=== PATIENT | male | born 2000 | race Caucasian/White ===

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

== ENCOUNTER 2022-11-05 21:23 | Emergency (ER) | payer OTHER ==
[2022-11-05 21:31] VITALS: BP 116/69; PULSE 85; RESP 18; TEMP 98.6; BMI 28.3
[2022-11-05] MEDS ORDERED: AMOX TR/POT CLAV 875MG/125MG TABLETS (FP) PO ONE (22:19)
[2022-11-05] MEDS ORDERED: AMOX TR/POT CLAV 875MG/125MG TABLETS (FP) ONE (22:20)
== END 2022-11-05 22:52 | disposition home or self-care (01) ==
LOC: JERFT 21:23
DX: L03.011 Cellulitis of right finger (principal); M79.644 Pain in right finger(s); M79.641 Pain in right hand
CPT/HCPCS: 99283-25

== ENCOUNTER 2022-11-14 20:04 | Emergency (ER) | payer OTHER ==
[2022-11-14 20:19] VITALS: BP 114/67; PULSE 85; RESP 20; TEMP 98.9; BMI 28.3
[2022-11-14] MEDS ORDERED: IBUPROFEN 400 MG TABLET (FP) PO ONE ×2 (21:31→21:34)
[2022-11-14] MEDS ORDERED: BACITRACIN ZINC 15 GM TUBE TOPICAL OINTMENT ONE (21:33)
[2022-11-14] MEDS ORDERED: BACITRACIN ZINC 15 GM TUBE TOPICAL OINTMENT TP ONE (21:33)
== END 2022-11-14 21:42 | disposition home or self-care (01) ==
LOC: JERFT 20:04 → JER 20:04 → JERFT 21:42
DX: L03.011 Cellulitis of right finger (principal); R22.31 Localized swelling, mass and lump, right upper limb
CPT/HCPCS: 99283-25

== ENCOUNTER 2023-10-08 12:05 | Emergency (ER) | payer OTHER ==
[2023-10-08 12:29] VITALS: BP 126/79; PULSE 89; RESP 20; TEMP 99; BMI 24.7
== END 2023-10-08 14:19 | disposition home or self-care (01) ==
LOC: JER 12:05
DX: F80.81 Childhood onset fluency disorder (principal); R25.9 Unspecified abnormal involuntary movements
CPT/HCPCS: 99282-25

== ENCOUNTER 2024-05-19 12:28 | Emergency (ER) | payer OTHER ==
[2024-05-19 12:38] VITALS: BMI 26.5
[2024-05-19] MEDS ORDERED: ACETAMINOPHEN 325 MG TABLET (FP) ONE (13:15)
[2024-05-19] MEDS ORDERED: MAG HYDROX/AL HYDROX/SIMETH 30 ML UNIT-DOSE CUP ONE (13:15)
[2024-05-19] MEDS: ACETAMINOPHEN 500 MG TABLET (FP) PO ONE (13:33)
[2024-05-19] MEDS: MAG HYDROX/AL HYDROX/SIMETH 30 ML UNIT-DOSE CUP PO ONE (13:33)
[2024-05-19 14:46] LABS: HEMATOCRIT 49.5 % (35.4-49); HEMOGLOBIN 16.8 GM/dL (11.7-16.9); MCHC 33.9 g/dl (32.0-35.9); MEAN CELL VOLUME 88.5 fl (80-96); MEAN PLT VOLUME 8.5 fl (7.5-11.1); PLATELET COUNT 211 10^3/uL (134-434); RBC 5.59 M/mm3 (4.00-5.60); RDW 13.2 % (11.9-15.9); WHITE BLOOD COUNT 10.9 K/mm3 (4.0-10.0)
[2024-05-19] MEDS: SODIUM CHLORIDE 0.9% 500 ML INFUS.BAG IV ONE (14:47)
[2024-05-19 14:54] LABS: INR 1.11 (0.83-1.09); PROTHROMBIN TIME (PATIENT) 12.5 SEC (9.7-13.0)
[2024-05-19 14:57] LABS: ACTIVATED PTT 34.4 SECONDS (25.2-36.5)
[2024-05-19 15:18] LABS: POTASSIUM 3.5 mmol/L (3.5-5.1)
[2024-05-19 15:20] LABS: ALBUMIN 4.5 g/dl (3.4-5.0); CALCIUM 9.1 mg/dL (8.5-10.1)
[2024-05-19 15:21] LABS: BLOOD UREA NITROGEN 19.8 mg/dL (7-18)
[2024-05-19 15:25] LABS: BILIRUBIN,TOTAL 0.5 mg/dL (0.2-1)
[2024-05-19 15:26] LABS: ANISOCYTOSIS 0; HELMET CELLS 0; HOWELL-JOLLY BODIES 0; MACROCYTOSIS 0; OVALOCYTE 0; ROULEAU 0; SICKELED CELLS 0; TARGET CELLS 0; TEAR DROP CELLS 0; TOXIC GRANULATION 0
[2024-05-19 15:50] VITALS: BP 126/77; PULSE 107; RESP 16; TEMP 99.1
[2024-05-19] MEDS ORDERED: KETOROLAC TROMETHAMINE 15 MG/ML VIAL ONE (15:51)
[2024-05-19] MEDS: KETOROLAC TROMETHAMINE 15 MG/ML VIAL IVPUSH ONE (15:56)
== END 2024-05-19 16:44 | disposition home or self-care (01) ==
LOC: JER 12:28
PROC: 3E0333Z Introduction of Anti-inflammatory into Peripheral Vein, Percutaneous Approach (ICD-10-PCS; principal; 2024-05-19)
DX: R11.2 Nausea with vomiting, unspecified (principal); R50.9 Fever, unspecified; R10.13 Epigastric pain; R07.81 Pleurodynia; R00.0 Tachycardia, unspecified; Z20.822 Contact with and (suspected) exposure to COVID-19
CPT/HCPCS: 0241U-QW; 36415; 71046-TC-FY; 80053; 85025; 85379; 85610; 85730; 93005; 93010; 99285-25